=== PATIENT | female | born 1985 | race American Indian/Alaskan Native ===

== ENCOUNTER 2017-03-17 09:43 | Emergency (ER) | payer OTHER ==
[2017-03-17 10:03] VITALS: BP 102/52
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
== END 2017-03-17 12:23 | disposition home or self-care (01) ==
LOC: ED 09:43
DX: M79.1 Myalgia (principal); V49.49XA Driver injured in collision with other motor vehicles in traffic accident, initial encounter; Y93.89 Activity, other specified; Y99.8 Other external cause status; Y92.89 Other specified places as the place of occurrence of the external cause
CPT/HCPCS: 99282

== ENCOUNTER 2017-06-03 07:41 | Emergency (ER) | payer SELFPAY ==
[2017-06-03 08:17] VITALS: BP 105/59
[2017-06-03 08:29] LABS: Basophils % (Auto) 0.7 % (0.0-1.8); Hematocrit 32.9 % (30.3-42.9); Hemoglobin 10.5 gm/dl (10.1-14.3); Mean Corpuscular HGB Conc 32 % (30-34); Platelet Count 337 K/mm3 (140-440); White Blood Count 6.4 K/mm3 (4.5-11.0)
[2017-06-03 08:33] LABS: Mean Corpuscular Volume 67 fl (79-97)
[2017-06-03 08:34] LABS: Mean Corpuscular Hemoglobin 21 pg (28-32); Red Cell Distribution Width 23.9 % (13.2-15.2)
[2017-06-03 08:45] LABS: Alanine Aminotransferase 9 units/L (7-56); Albumin 3.7 g/dL (3.9-5); Albumin/Globulin Ratio 0.9 %; Alkaline Phosphatase 85 units/L (35-129); Anion Gap 15 mmol/L; Blood Urea Nitrogen 9 mg/dL (7-17); Calcium 8.5 mg/dL (8.4-10.2); Carbon Dioxide 26 mmol/L (22-30); Chloride 101.5 mmol/L (98-107); Glucose 92 mg/dL (65-100); Lipase 41 units/L (13-60); Potassium 4.4 mmol/L (3.6-5.0); Sodium 138 mmol/L (137-145); Total Protein 7.7 g/dL (6.3-8.2)
[2017-06-03 08:50] LABS: Bilirubin,Urine NEG (Negative); Blood,Urine NEG (Negative); Ketones,Urine NEG (Negative); Leukocyte Esterase,Urine NEG (Negative); Nitrite,Urine POS (Negative); Protein,Urine <15 mg/dL mg/dL (Negative); Urobilinogen,Urine < 2.0 mg/dL (<2.0)
[2017-06-03 09:40] LABS: RBC,Urine < 1.0 /HPF (0.0-6.0)
[2017-06-03 09:42] LABS: Bacteria,Urine 3+ /HPF (Negative)
[2017-06-03 09:43] LABS: Mucus,Urine 1+ /HPF
--- NOTE | 2017-06-03 10:44 | Emergency Department Report ---
ED Abdominal Pain HPI - General Chief Complaint: Abdominal Pain Stated Complaint: ABD PAIN Time Seen by Provider: 06/03/17 10:38 Source: patient, RN notes reviewed Mode of arrival: Ambulatory Limitations: No Limitations - History of Present Illness Initial Comments: This is a 31-year-old female. She is previously unknown to me. She does not have a primary care doctor. She does not have any chronic medical conditions. She denies a history of abdominal surgeries. Last menstrual period was 2 weeks ago. The patient presents to the ER complaining of epigastric abdominal discomfort. It has been present for 3 months. It does not radiate anywhere. Does have any exacerbating or relieving factors. The patient reports a foul taste in her mouth, and a sensation of "gas." The patient denies hematemesis, bright red blood per rectum, chest pain, shortness of breath, lower abdominal pain, irritative and obstructive urinary symptoms The patient reports that she gets a dental cleaning at least once a year, she presses her teeth twice daily, but she does not floss. MD Complaint: abdominal pain -: Gradual Location: epigastric Consistency: intermittent Improves With: nothing Worsens With: nothing Associated Symptoms: denies: nausea, vomiting, diarrhea, fever, chills, constipation, dysuria, hematemesis, hematochezia, melena, hematuria, anorexia, syncope - Related Data LMP (females 10-50): last week Previous Rx's Medication Instructions Recorded Last Taken Type Cyclobenzaprine [Flexeril] 10 mg PO QHS PRN #20 tablet 03/17/17 Unknown Rx Ibuprofen [Motrin] 800 mg PO Q8HR PRN #30 tablet 03/17/17 Unknown Rx Famotidine [Pepcid] 20 mg PO QDAY #30 tablet 06/03/17 Unknown Rx Sucralfate [Carafate] 1 gm PO Q6HR #120 tablet 06/03/17 Unknown Rx Allergies Allergy/AdvReac Type Severity Reaction Status Date / Time No Known Allergies Allergy Unverified 03/17/17 10:03 ED Review of Systems ROS: Stated complaint: ABD PAIN Other details as noted in HPI Constitutional: denies: fever Eyes: denies: vision change ENT: denies: epistaxis Respiratory: denies: cough Cardiovascular: denies: chest pain Gastrointestinal: abdominal pain Genitourinary: denies: dysuria Musculoskeletal: denies: back pain Skin: denies: lesions Neurological: denies: headache, weakness ED Past Medical Hx - Past Medical History Previous Medical History?: No - Surgical History Past Surgical History?: No - Social History Smoking Status: Never Smoker - Medications Home Medications: Home Medications Medication Instructions Recorded Confirmed Last Taken Type Cyclobenzaprine [Flexeril] 10 mg PO QHS PRN #20 tablet 03/17/17 Unknown Rx Ibuprofen [Motrin] 800 mg PO Q8HR PRN #30 tablet 03/17/17 Unknown Rx Famotidine [Pepcid] 20 mg PO QDAY #30 tablet 06/03/17 Unknown Rx Sucralfate [Carafate] 1 gm PO Q6HR #120 tablet 06/03/17 Unknown Rx ED Physical Exam - General Limitations: No Limitations General appearance: alert, in no apparent distress - Head Head exam: Present: atraumatic, normocephalic - Eye Eye exam: Present: normal appearance, EOMI. Absent: nystagmus - ENT ENT exam: Present: normal exam, normal orophraynx, mucous membranes moist, normal external ear exam - Neck Neck exam: Present: normal inspection, full ROM. Absent: tenderness, meningismus - Respiratory Respiratory exam: Present: normal lung sounds bilaterally. Absent: respiratory distress, wheezes, rales, rhonchi, stridor, chest wall tenderness, accessory muscle use, decreased breath sounds, prolonged expiratory - Cardiovascular Cardiovascular Exam: Present: regular rate, normal rhythm, normal heart sounds. Absent: bradycardia, tachycardia, irregular rhythm, systolic murmur, diastolic murmur, rubs, gallop - GI/Abdominal GI/Abdominal exam: Present: soft, normal bowel sounds. Absent: distended, tenderness, guarding, rebound, rigid, pulsatile mass - Extremities Exam Extremities exam: Present: normal inspection, full ROM, normal capillary refill. Absent: pedal edema, joint swelling, calf tenderness - Back Exam Back exam: Present: normal inspection, full ROM. Absent: tenderness, CVA tenderness (R), CVA tenderness (L), muscle spasm, paraspinal tenderness, vertebral tenderness - Neurological Exam Neurological exam: Present: alert, oriented X3, normal gait, other (Extraocular movements intact. Tongue midline. No facial droop. Facial sensation intact to light touch in the V1, V2, V3 distribution bilaterally. 5 and 5 strength in 4 extremities.. Sensation is intact to light touch in 4 extremities.). Absent : motor sensory deficit - Psychiatric Psychiatric exam: Present: normal affect, normal mood - Skin Skin exam: Present: warm, dry, intact, normal color. Absent: rash ED Course Vital Signs 06/03/17 08:07 Temperature 98.2 F Pulse Rate 58 L Respiratory 16 Rate Blood Pressure 105/59 O2 Sat by Pulse 100 Oximetry ED Medical Decision Making - Lab Data Result diagrams: 06/03/17 08:20 06/03/17 08:20 Vital Signs 06/03/17 08:07 Temperature 98.2 F Pulse Rate 58 L Respiratory 16 Rate Blood Pressure 105/59 O2 Sat by Pulse 100 Oximetry Lab Results 06/03/17 06/03/17 06/03/17 Range/Units 08:20 08:20 08:34 WBC 6.4 (4.5-11.0) K/mm3 RBC 4.90 (3.65-5.03) M/mm3 Hgb 10.5 (10.1-14.3) gm/dl Hct 32.9 (30.3-42.9) % MCV 67 L (79-97) fl MCH 21 L (28-32) pg MCHC 32 (30-34) % RDW 23.9 H (13.2-15.2) % Plt Count 337 (140-440) K/mm3 Lymph % (Auto) 29.8 (13.4-35.0) % [place] % (Auto) 6.2 (0.0-7.3) % Eos % (Auto) 3.0 (0.0-4.3) % Baso % (Auto) 0.7 (0.0-1.8) % Lymph # 1.9 (1.2-5.4) K/mm3 Victoria # 0.4 (0.0-0.8) K/mm3 Eos # 0.2 (0.0-0.4) K/mm3 Baso # 0.0 (0.0-0.1) K/mm3 Seg Neutrophils % 60.3 (40.0-70.0) % Seg Neutrophils # 3.8 (1.8-7.7) K/mm3 Sodium 138 (137-145) mmol/L Potassium 4.4 (3.6-5.0) mmol/L Chloride 101.5 (98-107) mmol/L Carbon Dioxide 26 (22-30) mmol/L Anion Gap 15 mmol/L BUN 9 (7-17) mg/dL Creatinine 0.9 (0.7-1.2) mg/dL Estimated GFR > 60 ml/min BUN/Creatinine Ratio 10.00 % Glucose 92 (65-100) mg/dL Calcium 8.5 (8.4-10.2) mg/dL Total Bilirubin 0.40 (0.1-1.2) mg/dL AST 20 (5-40) units/L ALT 9 (7-56) units/L Alkaline Phosphatase 85 (35-129) units/L Total Protein 7.7 (6.3-8.2) g/dL Albumin 3.7 L (3.9-5) g/dL Albumin/Globulin Ratio 0.9 % Lipase 41 (13-60) units/L Urine Color Yellow (Yellow) Urine Turbidity Clear (Clear) Urine pH 6.0 (5.0-7.0) Ur Specific [place] 1.012 (1.003-1.030) Urine Protein <15 mg/dl (Negative) mg/dL Urine Glucose (UA) Neg (Negative) mg/dL Urine Ketones Neg (Negative) mg/dL Urine Blood Neg (Negative) Urine Nitrite Pos (Negative) Urine Bilirubin Neg (Negative) Urine Urobilinogen < 2.0 (<2.0) mg/dL Ur Leukocyte Esterase Neg (Negative) Urine WBC (Auto) 5.0 (0.0-6.0) /HPF Urine RBC (Auto) < 1.0 (0.0-6.0) /HPF U Epithel Cells (Auto) 2.0 (0-13.0) /HPF Urine Bacteria (Auto) 3+ (Negative) /HPF Urine WBC Clumps 1+ /HPF Urine Mucus 1+ /HPF Urine HCG, Qual (Negative) 06/03/17 Range/Units 08:34 WBC (4.5-11.0) K/mm3 RBC (3.65-5.03) M/mm3 Hgb (10.1-14.3) gm/dl Hct (30.3-42.9) % MCV (79-97) fl MCH (28-32) pg MCHC (30-34) % RDW (13.2-15.2) % Plt Count (140-440) K/mm3 Lymph % (Auto) (13.4-35.0) % [place] % (Auto) (0.0-7.3) % Eos % (Auto) (0.0-4.3) % Baso % (Auto) (0.0-1.8) % Lymph # (1.2-5.4) K/mm3 [place] # (0.0-0.8) K/mm3 Eos # (0.0-0.4) K/mm3 Baso # (0.0-0.1) K/mm3 Seg Neutrophils % (40.0-70.0) % Seg Neutrophils # (1.8-7.7) K/mm3 Sodium (137-145) mmol/L Potassium (3.6-5.0) mmol/L Chloride (98-107) mmol/L Carbon Dioxide (22-30) mmol/L Anion Gap mmol/L BUN (7-17) mg/dL Creatinine (0.7-1.2) mg/dL Estimated GFR ml/min BUN/Creatinine Ratio % Glucose (65-100) mg/dL Calcium (8.4-10.2) mg/dL Total Bilirubin (0.1-1.2) mg/dL AST (5-40) units/L ALT (7-56) units/L Alkaline Phosphatase (35-129) units/L Total Protein (6.3-8.2) g/dL Albumin (3.9-5) g/dL Albumin/Globulin Ratio % Lipase (13-60) units/L Urine Color (Yellow) Urine Turbidity (Clear) Urine pH (5.0-7.0) Ur Specific [place] (1.003-1.030) Urine Protein (Negative) mg/dL Urine Glucose (UA) (Negative) mg/dL Urine Ketones (Negative) mg/dL Urine Blood (Negative) Urine Nitrite (Negative) Urine Bilirubin (Negative) Urine Urobilinogen (<2.0) mg/dL Ur Leukocyte Esterase (Negative) Urine WBC (Auto) (0.0-6.0) /HPF Urine RBC (Auto) (0.0-6.0) /HPF U Epithel Cells (Auto) (0-13.0) /HPF Urine Bacteria (Auto) (Negative) /HPF Urine WBC Clumps /HPF Urine Mucus /HPF Urine HCG, Qual Negative (Negative) - Medical Decision Making Differential diagnosis: GERD, reflux, gastritis, halitosis Assessment and plan: 31-year-old female with 3 months of nonspecific epigastric abdominal discomfort. She is afebrile, with reassuring vital signs, with a benign physical examination. Her urinalysis is appreciated, she endorses no irritative or obstructive urinary symptoms, and she has no lower abdominal pain or complaints. She felt improved after conservative therapy, and she is instructed to avoid consumption of heavy and spicy foods, and she is suitable to follow up with an outpatient primary care doctor or recovery assistant. She saw a dentist last year, brushes twice daily, she is instructed to floss, and to avoid consumption of heavy and spicy foods. Critical care attestation.: If time is entered above; I have spent that time in minutes in the direct care of this critically ill patient, excluding procedure time. ED Disposition Clinical Impression: Abdominal discomfort Disposition: DC-01 TO HOME OR SELFCARE Is pt being admited?: No Does the pt Need Aspirin: No Condition: Good Instructions: Abdominal Pain (ED) Additional Instructions: Laboratory studies were unremarkable. Take the medications as directed. Avoid consumption of heavy and/or spicy foods. Avoid consumption of aspirin, Naprosyn , Motrin, Aleve, ibuprofen, alcohol. Follow-up with either her primary care doctor or recovery assistant within the next 2-[address] Hardy Cotto is a local primary care doctor. Dr. Salter is a local gastroenterology specialist. Contact [facility] at the following patient service hotline: [email or web address] ( [phone]) Return to the ER right away with new pain, worsened pain, migration of pain, fevers, chills, confusion, intractable nausea or vomiting, inability to tolerate liquid feeds. Prescriptions: Famotidine [Pepcid] 20 mg PO QDAY #30 tablet Sucralfate [Carafate] 1 gm PO Q6HR #120 tablet Referrals: PRIMARY CARE, [Primary Care Provider] - 3-5 Days HARDY COTTO MD [Staff Physician] - 3-5 Days CHAZ SALTER MD [Staff Physician] - 3-5 Days
[2017-06-03] MEDS ORDERED: ALUM-MAG HYDROX-SIMETH 200-200-20MG/5ML PO ONE (10:52)
[2017-06-03] MEDS ORDERED: PEPCID PO ONE (10:52)
[2017-06-03] MEDS ORDERED: CARAFATE PO ONE (10:52)
== END 2017-06-03 11:33 | disposition home or self-care (01) ==
LOC: ED 07:41
DX: R10.13 Epigastric pain (principal)
CPT/HCPCS: 36415; 80053; 81001; 81025; 83690; 85025; 99283